=== PATIENT | male | born 2000 | race Caucasian/White ===

== ENCOUNTER 2024-11-18 07:46 | Day surgery (SDC) | payer BC, OTHER ==
[~2024-11-18 07:46] MED LIST: EPINEPHrine 1 MG/ML SDV ONE; Sodium Chloride 0.9% 10 ML Syringe FLUSH PRN; Sodium Chloride 0.9% 10 ML Syringe FLUSH SCH
[2024-11-18] MEDS: Lactated Ringers 1,000 ML IV SCH (08:35)
[2024-11-18] MEDS ORDERED: fentaNYL 100 MCG/2 ML SDV ONE ×2 (08:39→09:22)
[2024-11-18] MEDS ORDERED: dexmedeTOMIDine HCl 200 MCG/2 ML SDV ONE (08:39)
[2024-11-18] MEDS ORDERED: Ropivacaine 0.5% 5 MG/ML 30 ML SDV ONE (08:39)
[2024-11-18] MEDS ORDERED: Midazolam 1 MG/ML 2 ML SDV ONE (08:39)
[2024-11-18] MEDS ORDERED: propofoL 500 MG/50 ML 50 ML ONE (08:39)
[2024-11-18] MEDS ORDERED: Dexamethasone 4 MG/ML 5 ML MDV ONE (09:22)
[2024-11-18] MEDS ORDERED: Rocuronium 50 MG/5 ML Vial ONE (09:22)
[2024-11-18] MEDS ORDERED: Ondansetron 4 MG/2 ML SDV ONE (09:22)
[2024-11-18] MEDS ORDERED: ceFAZolin 2 GM Vial ONE (09:58)
[2024-11-18] MEDS ORDERED: Lactated Ringers 1,000 ML ONE (09:59)
[2024-11-18] MEDS ORDERED: Sugammadex Sodium 200 MG/2 ML VIAL IV ONE (10:32)
[2024-11-18] MEDS ORDERED: Ondansetron 4 MG/2 ML SDV IVPUSH PRN (11:03)
[2024-11-18] MEDS ORDERED: fentaNYL 100 MCG/2 ML SDV IVPUSH PRN (11:03)
[2024-11-18] MEDS ORDERED: Ketorolac 30 MG/ML SDV IVPUSH PRN (11:03)
[2024-11-18] MEDS ORDERED: HYDROmorphone 0.5 MG/0.5 ML Syringe IVPUSH PRN (11:03)
[2024-11-18 15:12] VITALS: BP 103/55; PULSE 52
== END 2024-11-18 13:47 | disposition home or self-care (01) ==
LOC: JD.SDS 07:46
PROVIDERS: ATTEND Orthopaedic Surgery
DX: S43.431A Superior glenoid labrum lesion of right shoulder, initial encounter (principal); M75.21 Bicipital tendinitis, right shoulder; J45.909 Unspecified asthma, uncomplicated; Z91.048 Other nonmedicinal substance allergy status; Z87.891 Personal history of nicotine dependence; X58.XXXA Exposure to other specified factors, initial encounter
CPT/HCPCS: 29807; C1713; J0171; J0690; J1100; J2250; J2405; J2704; J2795; J3010; J7120; 01630; 64415; J3490